=== PATIENT | male | born 1970 | race Caucasian/White ===

== ENCOUNTER 2017-01-24 14:54 | Emergency (ER) | payer BC, OTHER ==
[2017-01-24 15:01] VITALS: BP 133/88
[2017-01-24] MEDS ORDERED: DIPH,PERTUS(ACELL)TETVAC-LF 0.5 ML VIAL IM ONE (15:12)
[2017-01-24] MEDS ORDERED: ceFAZolin 2 GM in SODIUM CHLORIDE 0.9% 100 ML IVPB STA (15:17)
[2017-01-24] MEDS ORDERED: LIDOCAINE 1% INJ 10MG/ML (20 ML MDV) SQ STA (15:46)
[2017-01-24] MEDS ORDERED: BUPIVACAINE (PF) 0.5% 30 ML VIAL SQ STA (15:46)
--- NOTE | 2017-01-24 15:49 | XR ---
Right hand HISTORY: Laceration to right third digit 3 views of the right hand, no comparisons There is a tuft fracture at the third digit with minimal displacement. No dislocation. Possible fract ure through the proximal aspect of the distal phalanx at the lateral aspect, lucency may extend into the joint, small metallic densities may represent foreign bodies. There is soft tissue swelling. IMPRESSION: Tuft fracture third digit and additional findings above.
--- NOTE | 2017-01-24 17:28 | ED ---
Wound/Laceration HPI - General Chief Complaint: Wound/Laceration Stated Complaint: finger lac Time Seen by Provider: 01/24/17 15:04 Source: patient Mode of arrival: ambulatory Limitations: no limitations - History of Present Illness Initial Comments: The patient is a 46-year-old male who presents to the ED with a chief complaint of laceration. Patient states that he was attempting to take dirt off of the tire on his lawnmower when his third digit got stuck under the lawnmower. Patient had this digit sliced by one of the lawnmower blades. He went inside and told his , who immediately brought him to the emergency department. Patient noted to have large laceration across the distal aspect of his third digit. He notes that he still has sensation with this digit. He denies these up-to-date on his tetanus shot. Patient does not take any aspirin or Plavix. He does not take any oral anticoagulation. - Related Data Home Medications Medication Instructions Recorded Confirmed Atorvastatin [Lipitor] 20 mg PO DAILY 11/07/15 01/24/17 Bath-3 Fatty Acids/Fish Oil [Fish 1 cap PO DAILY 11/08/15 01/24/17 Oil 1,000 mg Softgel] clomiPRAMINE [Anafranil] 150 mg PO HS 11/08/15 01/24/17 Losartan/Hydrochlorothiazide 1 tab PO DAILY 01/24/17 01/24/17 [Losartan-Hctz 100-12.5 mg Tab] Previous Rx's Medication Instructions Recorded Amoxic-Pot Clav 875-125Mg 1 tab PO BID #14 tablet 01/24/17 [Augmentin 875-125] HYDROcodone/APAP 5-325MG [[place] 1 tab PO Q6HR PRN #20 tab 01/24/17 5-325] Allergies Allergy/AdvReac Type Severity Reaction Status Date / Time No Known Allergies Allergy Verified 01/24/17 15:18 Review of Systems ROS Statement: Those systems with pertinent positive or pertinent negative responses have been documented in the HPI. ROS Other: All systems not noted in ROS Statement are negative. Constitutional: Denies: fever, chills, weakness Eyes: Denies: vision change ENT: Denies: throat pain Respiratory: Denies: cough, dyspnea, wheezes, hemoptysis, stridor Cardiovascular: Denies: chest pain Endocrine: Denies: fatigue Gastrointestinal: Denies: abdominal pain, nausea, vomiting, diarrhea, constipation Genitourinary: Denies: urgency, dysuria Skin: Reports: other (laceration to the third digit of the right hand) Neurological: Denies: headache, weakness Psychiatric: Denies: anxiety, depression Past Medical History Past Medical History: Hypertension Additional Past Medical History / Comment(s): cellulitis of the leg. 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 No experience. No international travel. No animal exposures. No ill contacts. Smoking Status: Never smoker Past Alcohol Use History: None Reported Past Drug Use History: None Reported - Past Family History Father Family Medical History: Cancer, Diabetes Mellitus Additional Family Medical History / Comment(s): prostate cancer Mother Family Medical History: Diabetes Mellitus General Exam Limitations: no limitations General appearance: alert, in no apparent distress Head exam: Present: atraumatic, normocephalic Eye exam: Present: normal appearance, PERRL Pupils: Present: normal accommodation ENT exam: Present: normal exam, normal oropharynx Neck exam: Present: normal inspection, full ROM Respiratory exam: Present: normal lung sounds bilaterally. Absent: respiratory distress, wheezes, rales, rhonchi, stridor Cardiovascular Exam: Present: regular rate, normal rhythm GI/Abdominal exam: Present: soft. Absent: distended, tenderness, guarding, rebound Extremities exam: Present: normal inspection, full ROM, normal capillary refill Neurological exam: Present: alert, oriented X3 Psychiatric exam: Present: normal affect, normal mood Skin exam: Present: warm, dry, other (Large laceration noted over the distal phalanx on the third digit of the right hand. The patient's bone is visualized. No obvious tendon or vascular damage. There are small amounts of grass present within the patient's wound. Laceration proceeds under the patient 's fingernail but does not include the nail bed. The nail itself is not lacerated.) Course Vital Signs 01/24/17 01/24/17 14:57 18:08 Temperature 97.9 F 98.5 F Pulse Rate 98 80 Respiratory 17 18 Rate Blood Pressure 133/88 O2 Sat by Pulse 98 100 Oximetry Procedures - Laceration Laceration #1 Consent Obtained: verbal consent Time Out Performed: Yes Indication: laceration Site: hand (third digit of the right hand) Size (cm): 4 Description: linear Depth: simple, single layer Anesthetic Used: lidocaine 1% Anesthesia Technique: nerve block (digital nerve block) Pre-repair: wound explored, irrigated extensively, extensive debridement ( including removal of grass and dirt particles) Type of Sutures: nylon Size of Sutures: 5-0 Number of Sutures: 5 (two sutures attaching fingernail to distal phalynx of third digit) Technique: simple, interrupted Complications: pain Patient Tolerated Procedure: well - Nerve Block Consent Obtained: verbal consent Time Out Performed: Yes Local Anesthetic Used: Marcaine 0.5% Amount of anesthesia used: 5 (2.5cc of Lidocaine, 2.5cc of Marcaine) Side: right Nerve Blocks: digital Procedure Successful: Yes Complications: none Patient Tolerated Procedure: well Medical Decision Making - Medical Decision Making Patient is a 46-year-old male who presents to ED with a chief complaint of laceration to right third digit. This occurred while the patient was working out [place]. Patient is not up-to-date on his tetanus shot. We'll provide patient with tetanus shot. Extensive irrigation is necessary for cleanout patient's finger status post laceration. We'll need to remove small amounts of [place] is a well. I did speak with Dr. Canela's office who recommended that the patient have loose closure of the laceration as well as attachment of the nail be a suture. Patient will be provided with a dose of Ancef here in the ED secondary to the fact that he likely has a fracture of the distal phalanx. 5:34 PM The patient has made the appointment with Dr. Canela's office for tomorrow morning. His laceration has been sutured closed. Pain is well controlled at this point in time. Patient will be discharged with [place] to use when necessary while home for pain control. Otherwise, patient will be discharged with Augmentin to take twice a day for possibility of infection in this digit. Although extensive debridement was performed, there still possibility of infection. I counseled the patient regarding this fact. I have encouraged him to come to the ED should he have worsening pain, evidence of purulent drainage, fever or chills. I have answered all his questions to his satisfaction. Disposition Clinical Impression: Finger laceration, Open fracture of tuft of distal phalanx of finger Disposition: HOME SELF-CARE Condition: Good Instructions: Laceration (ED), Finger Laceration (ED), Finger Fracture (ED) Additional Instructions: Please follow up with Orthopedic Surgery regarding your visit to the ED for your appointment tomorrow morning. Prescriptions: Amoxic-Pot Clav 875-125Mg [Augmentin 875-125] 1 tab PO BID #14 tablet HYDROcodone/APAP 5-325MG [[place] 5-325] 1 tab PO Q6HR PRN #20 tab PRN Reason: Pain Referrals: Jordan Chu MD [Primary Care Provider] - 1-2 days Josep Canela MD [STAFF PHYSICIAN] - 1-2 days (Please follow up with Dr. Canela for your appointment tomorrow) Time of Disposition: 17:34
[2017-01-24 18:09] VITALS: PULSE 80; RESP 18; TEMP 98.5
== END 2017-01-24 18:08 | disposition home or self-care (01) ==
LOC: EC 14:54
DX: S62.632B Displaced fracture of distal phalanx of right middle finger, initial encounter for open fracture (principal); S61.222A Laceration with foreign body of right middle finger without damage to nail, initial encounter; I10 Essential (primary) hypertension; F32.9 Major depressive disorder, single episode, unspecified; F41.9 Anxiety disorder, unspecified; Z23 Encounter for immunization; Z79.899 Other long term (current) drug therapy; W45.8XXA Other foreign body or object entering through skin, initial encounter; Y92.009 Unspecified place in unspecified non-institutional (private) residence as the place of occurrence of the external cause
CPT/HCPCS: 73130; 90715; 99283; 12042; 96365; 96366; 90471; J0690; J2001